=== PATIENT | male | born 1985 | race Hispanic/Latino ===

== ENCOUNTER 2021-12-29 14:52 | Emergency (ER) | payer OTHER, SELFPAY | END 2021-12-29 16:45 | disposition home or self-care (01) | LOC: EDBD 14:52 → ERS 14:52 | DX: M25.561 Pain in right knee (principal); V89.2XXA Person injured in unspecified motor-vehicle accident, traffic, initial encounter; Z21 Asymptomatic human immunodeficiency virus [HIV] infection status; Z79.899 Other long term (current) drug therapy ==